=== PATIENT | male | born 1960 | race African-American/Black ===

== ENCOUNTER 2018-05-18 04:17 | Emergency (ER) | payer OTHER | END 2018-05-18 05:51 | disposition home or self-care (01) | LOC: FTE 04:17 | DX: H10.022 Other mucopurulent conjunctivitis, left eye (principal); I10 Essential (primary) hypertension; F17.210 Nicotine dependence, cigarettes, uncomplicated; Z79.82 Long term (current) use of aspirin | CPT/HCPCS: 99283; Z7502 ==